=== PATIENT | female | born 1955 | race African-American/Black ===

== ENCOUNTER 2020-08-27 18:08 | Emergency (ER) | payer SELFPAY ==
[~2020-08-27] VITALS: Ht 170.2 cm; Wt 78.9 kg
[2020-08-27 18:21] VITALS: BP 132/81
[2020-08-27] MEDS ORDERED: DEXTROSE 50% SYRINGE 50 ML IV ONE (19:00)
[2020-08-27] MEDS ORDERED: DEXTROSE (50%) 50ML SYRG IV ONE (19:15)
[2020-08-27 20:13] LABS: Basophils # (auto) 0 10 ^3/uL (0-0.2); Basophils % (auto) 0.5 % (0.0-2.0); Eosinophils # (auto) 0 10 ^3/uL (0-0.8); Eosinophils % (auto) 0.5 % (0.0-7.0); Hemoglobin 11.9 g/dL (12.2-16.2); Lymphocytes # (auto) 0.8 10 ^3/uL (0.4-5.4); Lymphocytes % (auto) 9.8 % (10.0-50.0); Mean Corpuscular Hemoglobin 31.2 pg (28.0-32.0); Mean Corpuscular Volume 91.7 fL (80.0-100.0); Monocytes # (auto) 0.9 10 ^3/uL (0-1.3); Monocytes % (auto) 11.9 % (0.0-12.0); Neutrophils # (auto) 6.2 10 ^3/uL (1.6-8.6); Neutrophils % (auto) 77.3 % (37.0-80.0); Nucleated Red Blood Cells % 0.1 %; Platelet Count (auto) 559 10^3/uL (140-450); Red Blood Cells 3.82 10^6/uL (4.0-5.20); Red Cell Distribution Width 15.3 % (11.8-14.3)
[2020-08-27 20:49] LABS: Alanine Aminotransferase 39 U/L (13-56); Albumin 2.5 g/dL (3.4-5.0); Anion Gap 4 (5-15); Blood Urea Nitrogen 3 mg/dL (7-18); Carbon Dioxide 31 mmol/L (21-32); Chloride 103 mmol/L (98-107); Magnesium 1.6 mg/dL (1.6-2.6); Potassium 3.1 mmol/L (3.5-5.1); Sodium 138 mmol/L (136-145)
[2020-08-27 20:54] LABS: Alkaline Phosphatase 478 U/L (45-117); Aspartate Aminotransferase 98 U/L (15-37); BUN/Creatinine Ratio 4.2; Bilirubin, Total 0.5 mg/dL (0.2-1.0); GFR African American 105 mL/min; GFR Non-African American 87 mL/min; Total Protein 8.6 g/dL (6.4-8.2)
[2020-08-27 21:48] LABS: Glucose 33 mg/dL (74-106)
[2020-08-27] MEDS ORDERED: ACETAMINOPHEN 325 MG TAB PO PRN (22:45)
[2020-08-27] MEDS ORDERED: DEXTROSE 10% 1,000 ML IV SCH (22:45)
[2020-08-27] MEDS ORDERED: TEMAZEPAM 15 MG CAP PO PRN (22:45)
[2020-08-27] MEDS ORDERED: DEXTROSE (50%) 50ML SYRG IV PRN (22:45)
[2020-08-27] MEDS ORDERED: MORPHINE SULF INJ 2 MG/ML SYRINGE 1ML IV PRN (22:45)
[2020-08-27] MEDS ORDERED: NITROGLYCERIN 0.4 MG SL TAB SL PRN (22:45)
[2020-08-28] MEDS ORDERED: InsuLIN REG 1unit/0.01ml Soln (100units/ml) SC SCH
[2020-08-28] MEDS ORDERED: ACCU-CHEK COMFORT CURVE STRIP VI SCH
[2020-08-28] MEDS ORDERED: FAMOTIDINE 20 MG TAB PO SCH (10:00)
== END 2020-08-28 04:47 | disposition home or self-care (01) ==
LOC: ER 18:08 → EDBD 18:08 → ER 08-28 04:47
DX: E11.649 Type 2 diabetes mellitus with hypoglycemia without coma (principal); R41.82 Altered mental status, unspecified; I10 Essential (primary) hypertension; T38.3X5A Adverse effect of insulin and oral hypoglycemic [antidiabetic] drugs, initial encounter; Y92.89 Other specified places as the place of occurrence of the external cause
CPT/HCPCS: 36415; 80053; 82962; 83735; 84484; 85025; 93005; 96374; 99284; J7042